=== PATIENT | female | born 2000 | race Hispanic/Latino ===

== ENCOUNTER 2022-09-19 23:28 | Emergency (ER) | payer BC ==
[~2022-09-19] VITALS: Ht 162.6 cm; Wt 83.9 kg
[2022-09-19] MEDS ORDERED: HYDR-3421 PO (23:46)
[2022-09-19 23:48] VITALS: BP 135/85
[2022-09-20] MEDS ORDERED: HYDROXYZINE 25 MG TABLET ONE (00:03)
[2022-09-20] MEDS ORDERED: HYDROXYZINE 25 MG TABLET PO ONE (00:30)
== END 2022-09-20 00:08 | disposition home or self-care (01) ==
LOC: EDH 23:28
DX: F41.9 Anxiety disorder, unspecified (principal)